=== PATIENT | male | born 1935 | race Caucasian/White ===

== ENCOUNTER → 2017-01-17 | Outpatient (CLI) | payer MEDICARE, BC ==
[~2017-01-17] MED LIST: ADULT LOW DOSE81 MG PO; ALDACTONE25 MG PO; ALEVE220 MG; ALLERGY RELIEF180 MG PO; ATIVAN 0.5MG0.5 MG PO; COLACE100 MG PO; DESYREL50 MG PO; DULCOLAX10 MG R; ELAVIL25 MG PO; GLUCOPHAGE500 MG PO; LASIX20 MG PO; LASIX40 MG PO; LOPRESSOR25 MG PO; MELOXICAM7.5 MG PO; METOPROLOL SUCC25 MG PO; MIDODRINE HCL5 MG PO; MOBIC7.5 MG PO; NEURONTIN300 MG PO; NITROSTAT 0.40.4 MG SL; NITROSTAT0.4 MG PO; PRINIVIL OR ZES10 MG PO; PROTONIX40 MG PO; SANCTURA 20MG20 MG PO; TYLENOL EXTRA500 MG PO; ULTRAM50 MG PO
== END | disposition disaster alternative care site (69) ==
LOC: GAMB 15:50
DX: R53.1 Weakness (principal); R53.83 Other fatigue; R29.6 Repeated falls; Z79.82 Long term (current) use of aspirin; Z79.899 Other long term (current) drug therapy
CPT/HCPCS: A0422; A0425; A0427; J7030